=== PATIENT | male | born 1940 | race African-American/Black ===

== ENCOUNTER 2018-11-11 00:12 | Inpatient (IN) | payer MEDICARE, OTHER ==
[~2018-11-11] VITALS: Ht 177.8 cm; Wt 77.6 kg
[~2018-11-11 00:12] MED LIST: ALLO100T MT; AMLO2.5T45 PO; ASPI-518 PO; BACL-141 PO; CALC0.253 PO; CARV25TA47 PO; CELL2 PO; CELL5 PO; CYAN10009 PO; FURO40TA5 PO; HYDR-519 PO; MAGOX4 PO; MULT-1146 PO; OMEP20TA2 PO; PRED5TAB48 PO; PROG1 PO; TACR5CAP13 PO
[2018-11-11 01:11] VITALS: BP 149/71
[2018-11-11] MEDS ORDERED: CLONIDINE 0.1MG TABLET PO PRN (02:30)
[2018-11-11] MEDS ORDERED: ACETAMINOPHEN 325MG TABLET PO PRN (02:30)
[2018-11-11] MEDS ORDERED: CLONIDINE 0.2MG TABLET PO PRN (02:30)
[2018-11-11] MEDS ORDERED: DEXTROSE 50% WATER 50ML SYRINGE IV PRN (02:30)
[2018-11-11] MEDS ORDERED: ONDANSETRON HCL 4MG/2ML INJ IV PRN (02:30)
[2018-11-11] MEDS: BLOOD SUGAR DIAGNOSTIC STRIP TEST SCH ×4 (06:46→21:00)
[2018-11-11] MEDS: INSULIN LISPRO 100 UNITS/ML SUBCUT SCH ×4 (06:47→21:00)
[2018-11-11 08:00] VITALS: BP_SYST 143; BP_SYST 182; BP_DIAS 67; BP_DIAS 93
[2018-11-11] MEDS ORDERED: TACROLIMUS 5MG CAPSULE PO SCH (09:00)
[2018-11-11] MEDS: DOCUSATE SODIUM 100MG CAPSULE PO SCH ×2 (10:06→18:19)
[2018-11-11] MEDS: MYCOPHENOLATE MOFETIL 500MG TABLET PO SCH (10:06)
[2018-11-11] MEDS: ALLOPURINOL 100 MG TABLET PO SCH (10:07)
[2018-11-11] MEDS: PRIMIDONE 50MG TABLET PO SCH ×2 (10:07→20:32)
[2018-11-11] MEDS: MAGNESIUM OXIDE 400MG TABLET PO SCH ×2 (10:07→18:19)
[2018-11-11] MEDS: CARVEDILOL 25MG TABLET PO SCH ×2 (10:07→20:31)
[2018-11-11] MEDS: LIDOCAINE 5% PATCH TOP SCH (10:08)
[2018-11-11 12:00] VITALS: BP 180/88
[2018-11-11] MEDS ORDERED: IRON SUCROSE COMPLEX 100 MG in SODIUM CHLORIDE 0.9% 100 ML IV SCH (12:00)
[2018-11-11] MEDS: TACROLIMUS 1MG CAPSULE PO SCH (18:20)
[2018-11-11 20:00] VITALS: BP 137/71
[2018-11-11] MEDS: MYCOPHENOLATE MOFETIL 250MG CAPSULE PO SCH (20:31)
[2018-11-11] MEDS: IRON SUCROSE COMPLEX 100 MG in SODIUM CHLORIDE 0.9% 100 ML IV SCH (20:39)
[2018-11-12 06:28] LABS: HEMATOCRIT. 28.3 % (42.0-52.0); HEMOGLOBIN. 9.3 g/dL (14.0-18.0); MEAN CORPUSCULAR HEMOGLOBIN 28.1 pg (28.0-32.0); MEAN CORPUSCULAR VOLUME 85.2 fL (80.0-94.0); MEAN PLATELET VOLUME 9.5 fl (7.4-10.4); PLATELET 153 x1000/uL (130-400); RED BLOOD CELL COUNT 3.31 mill/uL (4.7-6.1); RED CELL DISTRIBUTION WIDTH 15.4 % (11.6-14.6)
[2018-11-12] MEDS: BLOOD SUGAR DIAGNOSTIC STRIP TEST SCH ×4 (06:30→21:00)
[2018-11-12 06:40] LABS: CHLORIDE 104 mEq/L (98-107)
[2018-11-12 08:00] VITALS: BP 169/78
[2018-11-12 08:51] LABS: PLATELET ESTIMATE NORMAL
[2018-11-12] MEDS: CARVEDILOL 25MG TABLET PO SCH ×2 (09:00→22:00)
[2018-11-12] MEDS: INSULIN LISPRO 100 UNITS/ML SUBCUT SCH ×4 (09:00→21:00)
[2018-11-12] MEDS: LIDOCAINE 5% PATCH TOP SCH (09:00)
[2018-11-12] MEDS: DOCUSATE SODIUM 100MG CAPSULE PO SCH ×2 (09:13→16:33)
[2018-11-12] MEDS: MYCOPHENOLATE MOFETIL 500MG TABLET PO SCH (09:13)
[2018-11-12] MEDS: PREDNISONE 5MG TABLET PO SCH (09:13)
[2018-11-12] MEDS: MAGNESIUM OXIDE 400MG TABLET PO SCH ×2 (09:14→16:33)
[2018-11-12] MEDS: ALLOPURINOL 100 MG TABLET PO SCH (09:14)
[2018-11-12] MEDS: PRIMIDONE 50MG TABLET PO SCH ×2 (09:15→22:01)
[2018-11-12] MEDS: TACROLIMUS 1MG CAPSULE PO SCH ×2 (09:15→16:34)
[2018-11-12] MEDS: HYDROCODONE/APAP 7.5/325MG 1 TAB TABLET PO PRN ×2 (10:43→17:37)
[2018-11-12] MEDS ORDERED: COLCHICINE 0.6MG TABLET PO NR (12:56)
[2018-11-12] MEDS ORDERED: COLCHICINE 0.6MG TABLET PO ONE (13:00)
[2018-11-12 20:00] VITALS: BP 138/74
[2018-11-12] MEDS ORDERED: COLCHICINE 0.6MG TABLET PO SCH (21:00)
[2018-11-12] MEDS: MYCOPHENOLATE MOFETIL 250MG CAPSULE PO SCH (22:00)
[2018-11-12] MEDS: IRON SUCROSE COMPLEX 100 MG in SODIUM CHLORIDE 0.9% 100 ML IV SCH (22:01)
[2018-11-13] MEDS: INSULIN LISPRO 100 UNITS/ML SUBCUT SCH ×4 (06:31→21:00)
[2018-11-13] MEDS: BLOOD SUGAR DIAGNOSTIC STRIP TEST SCH ×4 (06:31→21:33)
[2018-11-13 06:39] LABS: HEMATOCRIT. 26.3 % (42.0-52.0); HEMOGLOBIN. 8.8 g/dL (14.0-18.0); MEAN CORPUSCULAR HEMOGLOBIN 28.2 pg (28.0-32.0); MEAN CORPUSCULAR VOLUME 84.4 fL (80.0-94.0); MEAN PLATELET VOLUME 9.2 fl (7.4-10.4); PLATELET 162 x1000/uL (130-400); RED BLOOD CELL COUNT 3.11 mill/uL (4.7-6.1); RED CELL DISTRIBUTION WIDTH 15.9 % (11.6-14.6)
[2018-11-13 06:59] LABS: PHOSPHORUS 2.9 mg/dL (2.5-4.9)
[2018-11-13 07:41] LABS: FOLIC ACID (FOLATE) SERUM 10.7 ng/mL (>5.38)
[2018-11-13 08:10] VITALS: BP 132/65
[2018-11-13] MEDS: LIDOCAINE 5% PATCH TOP SCH (09:00)
[2018-11-13] MEDS ORDERED: COLCHICINE 0.6MG TABLET PO NR (09:15)
[2018-11-13] MEDS: DOCUSATE SODIUM 100MG CAPSULE PO SCH ×2 (09:18→16:39)
[2018-11-13] MEDS: TACROLIMUS 1MG CAPSULE PO SCH ×2 (09:18→16:39)
[2018-11-13] MEDS: PRIMIDONE 50MG TABLET PO SCH ×2 (09:18→21:31)
[2018-11-13] MEDS: ALLOPURINOL 100 MG TABLET PO SCH (09:19)
[2018-11-13] MEDS: MYCOPHENOLATE MOFETIL 500MG TABLET PO SCH (09:19)
[2018-11-13] MEDS: CARVEDILOL 25MG TABLET PO SCH ×2 (09:19→21:29)
[2018-11-13] MEDS: MAGNESIUM OXIDE 400MG TABLET PO SCH ×2 (09:19→16:39)
[2018-11-13 13:05] LABS: NUCLEATED RED BLOOD CELLS 1 /100 WBC; PLATELET ESTIMATE NORMAL
[2018-11-13 20:00] VITALS: BP 138/70
[2018-11-13] MEDS: MYCOPHENOLATE MOFETIL 250MG CAPSULE PO SCH (21:29)
[2018-11-14] MEDS: BLOOD SUGAR DIAGNOSTIC STRIP TEST SCH ×4 (06:48→21:16)
[2018-11-14] MEDS: TACROLIMUS 1MG CAPSULE PO SCH ×2 (08:14→17:01)
[2018-11-14] MEDS: PRIMIDONE 50MG TABLET PO SCH ×2 (08:15→21:14)
[2018-11-14] MEDS: CARVEDILOL 25MG TABLET PO SCH ×2 (08:15→21:13)
[2018-11-14] MEDS: DOCUSATE SODIUM 100MG CAPSULE PO SCH ×2 (08:15→17:02)
[2018-11-14] MEDS: ALLOPURINOL 100 MG TABLET PO SCH (08:15)
[2018-11-14] MEDS: MYCOPHENOLATE MOFETIL 500MG TABLET PO SCH (08:15)
[2018-11-14] MEDS: MAGNESIUM OXIDE 400MG TABLET PO SCH ×2 (08:16→17:01)
[2018-11-14] MEDS: INSULIN LISPRO 100 UNITS/ML SUBCUT SCH ×4 (08:16→21:00)
[2018-11-14] MEDS: LIDOCAINE 5% PATCH TOP SCH (08:19)
[2018-11-14 08:33] VITALS: BP 154/77
[2018-11-14 20:00] VITALS: BP 134/66
[2018-11-14] MEDS: MYCOPHENOLATE MOFETIL 250MG CAPSULE PO SCH (21:13)
[2018-11-15 05:50] LABS: HEMATOCRIT. 27.5 % (42.0-52.0); MEAN CORPUSCULAR HEMOGLOBIN 27.9 pg (28.0-32.0); MEAN CORPUSCULAR VOLUME 85.6 fL (80.0-94.0); MEAN PLATELET VOLUME 8.6 fl (7.4-10.4); PLATELET 171 x1000/uL (130-400); RED BLOOD CELL COUNT 3.21 mill/uL (4.7-6.1); RED CELL DISTRIBUTION WIDTH 15.6 % (11.6-14.6)
[2018-11-15 07:00] LABS: PHOSPHORUS 3.5 mg/dL (2.5-4.9)
[2018-11-15] MEDS: BLOOD SUGAR DIAGNOSTIC STRIP TEST SCH ×4 (07:22→21:00)
[2018-11-15 08:00] VITALS: BP 127/50
[2018-11-15] MEDS: MYCOPHENOLATE MOFETIL 500MG TABLET PO SCH (08:41)
[2018-11-15] MEDS: TACROLIMUS 1MG CAPSULE PO SCH ×2 (08:42→17:54)
[2018-11-15] MEDS: MAGNESIUM OXIDE 400MG TABLET PO SCH (08:42)
[2018-11-15] MEDS: DOCUSATE SODIUM 100MG CAPSULE PO SCH ×2 (08:42→17:54)
[2018-11-15] MEDS: PREDNISONE 5MG TABLET PO SCH (08:42)
[2018-11-15] MEDS: LIDOCAINE 5% PATCH TOP SCH (08:43)
[2018-11-15] MEDS: ALLOPURINOL 100 MG TABLET PO SCH (08:43)
[2018-11-15] MEDS: PRIMIDONE 50MG TABLET PO SCH ×2 (08:43→22:10)
[2018-11-15] MEDS: INSULIN LISPRO 100 UNITS/ML SUBCUT SCH ×4 (08:43→21:00)
[2018-11-15] MEDS: CARVEDILOL 25MG TABLET PO SCH ×2 (08:45→22:13)
[2018-11-15 12:28] LABS: PLATELET ESTIMATE NORMAL
[2018-11-15 20:00] VITALS: BP 137/77
[2018-11-15] MEDS: MYCOPHENOLATE MOFETIL 250MG CAPSULE PO SCH (22:09)
[2018-11-15] MEDS: EPOETIN ALFA 10000UNITS/ML VIAL SUBCUT SCH (22:13)
[2018-11-16] MEDS: BLOOD SUGAR DIAGNOSTIC STRIP TEST SCH ×4 (05:46→21:12)
[2018-11-16] MEDS: INSULIN LISPRO 100 UNITS/ML SUBCUT SCH ×4 (06:59→21:00)
[2018-11-16 08:00] VITALS: BP 112/56
[2018-11-16] MEDS: PRIMIDONE 50MG TABLET PO SCH ×2 (08:07→21:11)
[2018-11-16] MEDS: TACROLIMUS 1MG CAPSULE PO SCH ×2 (08:08→17:25)
[2018-11-16] MEDS: DOCUSATE SODIUM 100MG CAPSULE PO SCH ×2 (08:08→17:25)
[2018-11-16] MEDS: MYCOPHENOLATE MOFETIL 500MG TABLET PO SCH (08:08)
[2018-11-16] MEDS: CARVEDILOL 25MG TABLET PO SCH ×2 (08:08→21:06)
[2018-11-16] MEDS: ALLOPURINOL 100 MG TABLET PO SCH (08:08)
[2018-11-16] MEDS: LIDOCAINE 5% PATCH TOP SCH (08:48)
[2018-11-16] MEDS: HYDROCODONE/APAP 7.5/325MG 1 TAB TABLET PO PRN (12:07)
[2018-11-16 20:00] VITALS: BP 120/64
[2018-11-16] MEDS: MYCOPHENOLATE MOFETIL 250MG CAPSULE PO SCH (21:06)
[2018-11-17] MEDS: BLOOD SUGAR DIAGNOSTIC STRIP TEST SCH ×4 (05:44→21:00)
[2018-11-17] MEDS: INSULIN LISPRO 100 UNITS/ML SUBCUT SCH ×4 (05:45→21:00)
[2018-11-17 06:36] LABS: BASOPHILS % 0.7 % (0.0-2.0); EOSINOPHILS % 3.6 % (0.0-5.0); HEMATOCRIT. 27.8 % (42.0-52.0); MEAN CORPUSCULAR VOLUME 85.9 fL (80.0-94.0); MEAN PLATELET VOLUME 8.6 fl (7.4-10.4); MONOCYTES % 14.6 % (2.0-8.0); NEUTROPHILS % 54.1 % (40.0-76.0); PLATELET 177 x1000/uL (130-400); RED BLOOD CELL COUNT 3.24 mill/uL (4.7-6.1); RED CELL DISTRIBUTION WIDTH 16.3 % (11.6-14.6)
[2018-11-17 06:52] LABS: CHLORIDE 104 mEq/L (98-107)
[2018-11-17 06:59] LABS: PHOSPHORUS 4.1 mg/dL (2.5-4.9)
[2018-11-17] MEDS: MYCOPHENOLATE MOFETIL 500MG TABLET PO SCH (08:41)
[2018-11-17] MEDS: ALLOPURINOL 100 MG TABLET PO SCH (08:41)
[2018-11-17] MEDS: DOCUSATE SODIUM 100MG CAPSULE PO SCH ×2 (08:41→16:39)
[2018-11-17] MEDS: PRIMIDONE 50MG TABLET PO SCH ×2 (08:41→23:31)
[2018-11-17] MEDS: PREDNISONE 5MG TABLET PO SCH (08:41)
[2018-11-17] MEDS: CARVEDILOL 25MG TABLET PO SCH ×2 (08:42→23:30)
[2018-11-17] MEDS: TACROLIMUS 1MG CAPSULE PO SCH ×2 (08:42→16:39)
[2018-11-17 18:02] LABS: HEPATITIS B SURFACE AB 511.5 mIU/mL
[2018-11-17 20:00] VITALS: BP 126/66
[2018-11-17] MEDS: MYCOPHENOLATE MOFETIL 250MG CAPSULE PO SCH (23:30)
[2018-11-17] MEDS: EPOETIN ALFA 10000UNITS/ML VIAL SUBCUT SCH (23:32)
[2018-11-18] MEDS: INSULIN LISPRO 100 UNITS/ML SUBCUT SCH ×4 (06:44→20:44)
[2018-11-18] MEDS: BLOOD SUGAR DIAGNOSTIC STRIP TEST SCH ×4 (06:44→20:43)
[2018-11-18 08:00] VITALS: BP 128/72
[2018-11-18] MEDS: CARVEDILOL 25MG TABLET PO SCH ×2 (09:09→20:43)
[2018-11-18] MEDS: DOCUSATE SODIUM 100MG CAPSULE PO SCH ×2 (09:09→17:00)
[2018-11-18] MEDS: ALLOPURINOL 100 MG TABLET PO SCH (09:09)
[2018-11-18] MEDS: PRIMIDONE 50MG TABLET PO SCH ×2 (09:14→20:43)
[2018-11-18] MEDS: TACROLIMUS 1MG CAPSULE PO SCH ×2 (09:15→17:56)
[2018-11-18] MEDS: MYCOPHENOLATE MOFETIL 500MG TABLET PO SCH (09:19)
[2018-11-18 17:11] LABS: 25-HYDROXY VITAMIN D3 9.3 ng/mL (.)
[2018-11-18 20:00] VITALS: BP 118/65
[2018-11-18] MEDS: MYCOPHENOLATE MOFETIL 250MG CAPSULE PO SCH (20:42)
[2018-11-19 08:00] VITALS: BP 143/72
[2018-11-19] MEDS: INSULIN LISPRO 100 UNITS/ML SUBCUT SCH ×4 (09:00→21:00)
[2018-11-19] MEDS: DOCUSATE SODIUM 100MG CAPSULE PO SCH ×2 (09:00→17:49)
[2018-11-19] MEDS: PREDNISONE 5MG TABLET PO SCH (10:19)
[2018-11-19] MEDS: MYCOPHENOLATE MOFETIL 250MG CAPSULE PO SCH (10:19)
[2018-11-19] MEDS: MYCOPHENOLATE MOFETIL 500MG TABLET PO SCH (10:19)
[2018-11-19] MEDS: PRIMIDONE 50MG TABLET PO SCH ×2 (10:20→23:57)
[2018-11-19] MEDS: CARVEDILOL 25MG TABLET PO SCH (10:20)
[2018-11-19] MEDS: ALLOPURINOL 100 MG TABLET PO SCH (10:20)
[2018-11-19] MEDS: TACROLIMUS 1MG CAPSULE PO SCH ×2 (10:21→17:49)
[2018-11-19] MEDS: BLOOD SUGAR DIAGNOSTIC STRIP TEST SCH ×3 (11:15→21:00)
[2018-11-19] MEDS: HYDROCODONE/APAP 7.5/325MG 1 TAB TABLET PO PRN (11:43)
[2018-11-19] MEDS ORDERED: ERGOCALCIFEROL 50000UNITS CAPSULE PO SCH (16:00)
[2018-11-19 20:00] VITALS: BP 133/71
[2018-11-19] MEDS: EPOETIN ALFA 10000UNITS/ML VIAL SUBCUT SCH (23:57)
[2018-11-20] MEDS: CARVEDILOL 25MG TABLET PO SCH ×2 (00:04→09:56)
[2018-11-20] MEDS: BLOOD SUGAR DIAGNOSTIC STRIP TEST SCH ×2 (06:30→11:15)
[2018-11-20] MEDS: INSULIN LISPRO 100 UNITS/ML SUBCUT SCH ×2 (07:43→13:00)
[2018-11-20 08:00] VITALS: BP 133/62
[2018-11-20] MEDS: MYCOPHENOLATE MOFETIL 500MG TABLET PO SCH (09:55)
[2018-11-20] MEDS: ALLOPURINOL 100 MG TABLET PO SCH (09:55)
[2018-11-20] MEDS: DOCUSATE SODIUM 100MG CAPSULE PO SCH (09:55)
[2018-11-20] MEDS: PRIMIDONE 50MG TABLET PO SCH (09:55)
[2018-11-20] MEDS: TACROLIMUS 1MG CAPSULE PO SCH (09:56)
[2018-11-20 10:36] VITALS: BP 133/62
== END 2018-11-20 15:22 | disposition home health service (06) | DRG 683 ==
PROVIDERS: ADMIT Physical Medicine & Rehabilitation Spinal Cord Injury Medicine; ATTEND Internal Medicine Nephrology
PROC: 5A1D70Z Performance of Urinary Filtration, Intermittent, Less than 6 Hours Per Day (ICD-10-PCS; principal; 2018-11-12)
PROC: 5A1D70Z Performance of Urinary Filtration, Intermittent, Less than 6 Hours Per Day (ICD-10-PCS; 2018-11-15)
PROC: 5A1D70Z Performance of Urinary Filtration, Intermittent, Less than 6 Hours Per Day (ICD-10-PCS; 2018-11-17)
PROC: 5A1D70Z Performance of Urinary Filtration, Intermittent, Less than 6 Hours Per Day (ICD-10-PCS; 2018-11-19)
DX: N17.9 Acute kidney failure, unspecified (principal); I13.2 Hypertensive heart and chronic kidney disease with heart failure and with stage 5 chronic kidney disease, or end stage renal disease; M62.82 Rhabdomyolysis; I42.9 Cardiomyopathy, unspecified; I25.811 Atherosclerosis of native coronary artery of transplanted heart without angina pectoris; R53.81 Other malaise; N18.6 End stage renal disease; D50.9 Iron deficiency anemia, unspecified; D63.8 Anemia in other chronic diseases classified elsewhere; D69.6 Thrombocytopenia, unspecified; E11.22 Type 2 diabetes mellitus with diabetic chronic kidney disease; E11.42 Type 2 diabetes mellitus with diabetic polyneuropathy; I50.9 Heart failure, unspecified; J44.9 Chronic obstructive pulmonary disease, unspecified; M10.9 Gout, unspecified; E55.9 Vitamin D deficiency, unspecified; F06.31 Mood disorder due to known physiological condition with depressive features; R26.9 Unspecified abnormalities of gait and mobility; R74.8 Abnormal levels of other serum enzymes; Z99.2 Dependence on renal dialysis; Z79.4 Long term (current) use of insulin; Z92.3 Personal history of irradiation; Z85.46 Personal history of malignant neoplasm of prostate; Z86.73 Personal history of transient ischemic attack (TIA), and cerebral infarction without residual deficits
CPT/HCPCS: 36415; 80048; 82306; 82607; 82728; 82746; 82962; 83540; 83550; 83735; 84100; 84134; 84443; 84550; 86705; 86706; 93970; 97110; 97112; 97116; 97150; 97162; 97166; 97530; 97535; J0885; J7050; J7507; J7512; J7517

== ENCOUNTER 2019-02-08 18:28 | Inpatient (IN) | payer MEDICARE, MEDICAID, OTHER ==
[~2019-02-08] VITALS: Ht 177.8 cm; Wt 76.7 kg
[2019-02-08 21:22] LABS: HEMATOCRIT. 35.6 % (42.0-52.0); HEMOGLOBIN. 11.3 g/dL (14.0-18.0); MEAN CORPUSCULAR HEMOGLOBIN 29.3 pg (28.0-32.0); MEAN CORPUSCULAR VOLUME 92.1 fL (80.0-94.0); PLATELET 135 x1000/uL (130-400); RED BLOOD CELL COUNT 3.87 mill/uL (4.7-6.1); RED CELL DISTRIBUTION WIDTH 17.4 % (11.6-14.6)
[2019-02-08 21:28] LABS: CHLORIDE 103 mEq/L (98-107)
[2019-02-08 21:33] LABS: PHOSPHORUS 3.7 mg/dL (2.5-4.9)
[2019-02-08] MEDS ORDERED: HEPARIN 5000 UNITS/ML VIAL IV NR (21:45)
[2019-02-08 21:49] LABS: PLATELET ESTIMATE NORMAL
[2019-02-08] MEDS ORDERED: ASPIRIN 325MG EC TABLET PO NR (22:00)
[2019-02-08 22:02] LABS: PARTIAL THROMBOPLASTIN TIME 27.1 sec (23.4-31.0)
[2019-02-08] MEDS ORDERED: HEPARIN 25,000 UNITS PREMIX 500 ML IV NR (23:00)
[2019-02-08] MEDS ORDERED: ACETAMINOPHEN 325MG TABLET PO PRN (23:15)
[2019-02-08] MEDS ORDERED: GUAIFENESIN 200MG/10ML SUGAR FREE UDC PO PRN (23:15)
[2019-02-08] MEDS ORDERED: ONDANSETRON HCL 4MG/2ML INJ IV PRN (23:15)
[2019-02-08] MEDS ORDERED: DIPHENHYDRAMINE 50MG/ML VIAL IV PRN (23:15)
[2019-02-08] MEDS ORDERED: CLONIDINE 0.1MG TABLET PO PRN (23:15)
[2019-02-08] MEDS ORDERED: MAGNESIUM/ALUMINUM HYDROXIDE/SIMETHICONE 30ML UDC PO PRN (23:15)
[2019-02-09] VITALS (7 sets, daily range): BP systolic 110–129; BP diastolic 55–75
[2019-02-09] MEDS: OMEPRAZOLE 20MG CAPSULE EXTENDED RELEASE PO SCH (07:50)
[2019-02-09] MEDS ORDERED: PRIMIDONE 50MG TABLET PO SCH (09:00)
[2019-02-09] MEDS ORDERED: ENOXAPARIN 40MG/0.4ML SYR SUBCUT SCH (09:00)
[2019-02-09] MEDS ORDERED: MYCOPHENOLATE MOFETIL 250MG CAPSULE PO SCH (09:00)
[2019-02-09] MEDS: CARVEDILOL 12.5MG TABLET PO SCH (09:20)
[2019-02-09] MEDS: ALLOPURINOL 100 MG TABLET PO SCH (09:20)
[2019-02-09] MEDS: ASPIRIN 81MG EC TABLET PO SCH (09:20)
[2019-02-09] MEDS: PREDNISONE 5MG TABLET PO SCH (09:20)
[2019-02-09] MEDS: TACROLIMUS 5MG CAPSULE PO SCH ×2 (12:08→18:22)
[2019-02-09] MEDS ORDERED: DEXTROSE 50% WATER 50ML SYRINGE IV PRN (17:00)
[2019-02-09] MEDS: INSULIN LISPRO 100 UNITS/ML SUBCUT SCH ×2 (17:20→21:00)
[2019-02-09] MEDS: ENOXAPARIN 30MG/0.3ML SYR SUBCUT SCH (18:22)
[2019-02-09] MEDS: BLOOD SUGAR DIAGNOSTIC STRIP TEST SCH (21:00)
[2019-02-09] MEDS: SODIUM CHLORIDE 0.9% INJ 3ML FLUSH IVF SCH ×2 (21:54→21:55)
[2019-02-10] VITALS (14 sets, daily range): BP systolic 102–149; BP diastolic 59–85
[2019-02-10] MEDS: PRIMIDONE 50MG TABLET PO SCH ×3 (01:09→20:38)
[2019-02-10] MEDS: OMEPRAZOLE 20MG CAPSULE EXTENDED RELEASE PO SCH ×2 (01:09→06:02)
[2019-02-10] MEDS: CARVEDILOL 12.5MG TABLET PO SCH ×3 (01:10→20:38)
[2019-02-10] MEDS: MYCOPHENOLATE MOFETIL 250MG CAPSULE PO SCH ×2 (01:15→20:38)
[2019-02-10] MEDS: SODIUM CHLORIDE 0.9% INJ 3ML FLUSH IVF SCH ×3 (06:02→20:39)
[2019-02-10] MEDS: BLOOD SUGAR DIAGNOSTIC STRIP TEST SCH ×5 (06:02→20:38)
[2019-02-10] MEDS: INSULIN LISPRO 100 UNITS/ML SUBCUT SCH ×4 (06:23→20:43)
[2019-02-10 06:30] LABS: BASOPHILS % 0.4 % (0.0-2.0); EOSINOPHILS % 2.5 % (0.0-5.0); HEMATOCRIT. 32.9 % (42.0-52.0); HEMOGLOBIN. 10.8 g/dL (14.0-18.0); MEAN CORPUSCULAR HEMOGLOBIN 29.5 pg (28.0-32.0); MEAN CORPUSCULAR VOLUME 90.2 fL (80.0-94.0); MEAN PLATELET VOLUME 9.1 fl (7.4-10.4); MONOCYTES % 13.9 % (2.0-8.0); NEUTROPHILS % 52.2 % (40.0-76.0); PLATELET 124 x1000/uL (130-400); RED BLOOD CELL COUNT 3.65 mill/uL (4.7-6.1); RED CELL DISTRIBUTION WIDTH 17.3 % (11.6-14.6)
[2019-02-10] MEDS: TACROLIMUS 5MG CAPSULE PO SCH ×2 (08:42→17:07)
[2019-02-10] MEDS: ASPIRIN 81MG EC TABLET PO SCH (08:42)
[2019-02-10] MEDS: ALLOPURINOL 100 MG TABLET PO SCH (08:42)
[2019-02-10] MEDS: ENOXAPARIN 30MG/0.3ML SYR SUBCUT SCH (08:43)
[2019-02-10] MEDS: MYCOPHENOLATE MOFETIL 500MG TABLET PO SCH (08:45)
[2019-02-10] MEDS ORDERED: REGADENOSON 0.4 MG/5 ML IV ONE (09:30)
[2019-02-11] VITALS (16 sets, daily range): BP systolic 109–155; BP diastolic 65–88
[2019-02-11] MEDS: SODIUM CHLORIDE 0.9% INJ 3ML FLUSH IVF SCH ×2 (05:37→14:24)
[2019-02-11] MEDS: INSULIN LISPRO 100 UNITS/ML SUBCUT SCH ×2 (05:38→12:08)
[2019-02-11] MEDS ORDERED: FAMOTIDINE 20MG TABLET PO SCH (09:00)
[2019-02-11] MEDS: CARVEDILOL 12.5MG TABLET PO SCH (09:00)
[2019-02-11] MEDS: ENOXAPARIN 30MG/0.3ML SYR SUBCUT SCH (09:09)
[2019-02-11] MEDS: PREDNISONE 5MG TABLET PO SCH (09:10)
[2019-02-11] MEDS: MYCOPHENOLATE MOFETIL 500MG TABLET PO SCH (09:10)
[2019-02-11] MEDS: ASPIRIN 81MG EC TABLET PO SCH (09:10)
[2019-02-11] MEDS: TACROLIMUS 5MG CAPSULE PO SCH (09:10)
[2019-02-11] MEDS: PRIMIDONE 50MG TABLET PO SCH (09:10)
[2019-02-11] MEDS: ALLOPURINOL 100 MG TABLET PO SCH (09:10)
[2019-02-11] MEDS ORDERED: REGADENOSON 0.4 MG/5 ML IV ONE (11:46)
[2019-02-11] MEDS: BLOOD SUGAR DIAGNOSTIC STRIP TEST SCH (11:50)
[2019-02-11 14:24] LABS: BASOPHILS % 1.4 % (0.0-2.0); EOSINOPHILS % 0.9 % (0.0-5.0); HEMATOCRIT. 38.6 % (42.0-52.0); HEMOGLOBIN. 12.5 g/dL (14.0-18.0); LYMPHOCYTES % 20.3 % (20.0-50.0); MEAN CORPUSCULAR HEMOGLOBIN 29.4 pg (28.0-32.0); MEAN CORPUSCULAR VOLUME 90.6 fL (80.0-94.0); MEAN PLATELET VOLUME 9.6 fl (7.4-10.4); MONOCYTES % 8.3 % (2.0-8.0); NEUTROPHILS % 69.1 % (40.0-76.0); PLATELET 134 x1000/uL (130-400); RED BLOOD CELL COUNT 4.26 mill/uL (4.7-6.1)
== END 2019-02-11 16:38 | disposition home or self-care (01) | DRG 280 ==
LOC: ER 18:28 → 3WST 22:24 → EDBEDREQ 22:25 → EDBEDREQTM 22:25 → EDBEDREQSVC 22:25 → EDBEDREQTM 22:26 → ENRESERV 02-09 07:00
PROVIDERS: ADMIT Internal Medicine; ATTEND Internal Medicine
PROC: 5A1D70Z Performance of Urinary Filtration, Intermittent, Less than 6 Hours Per Day (ICD-10-PCS; principal; 2019-02-09)
PROC: 5A1D70Z Performance of Urinary Filtration, Intermittent, Less than 6 Hours Per Day (ICD-10-PCS; 2019-02-10)
DX: I21.4 Non-ST elevation (NSTEMI) myocardial infarction (principal); N18.6 End stage renal disease; I25.811 Atherosclerosis of native coronary artery of transplanted heart without angina pectoris; Z94.1 Heart transplant status; I13.11 Hypertensive heart and chronic kidney disease without heart failure, with stage 5 chronic kidney disease, or end stage renal disease; E11.22 Type 2 diabetes mellitus with diabetic chronic kidney disease; E78.00 Pure hypercholesterolemia, unspecified; G25.3 Myoclonus; J44.9 Chronic obstructive pulmonary disease, unspecified; K73.2 Chronic active hepatitis, not elsewhere classified; M10.9 Gout, unspecified; Z85.46 Personal history of malignant neoplasm of prostate; Z86.73 Personal history of transient ischemic attack (TIA), and cerebral infarction without residual deficits; Z95.1 Presence of aortocoronary bypass graft; Z92.3 Personal history of irradiation; Z99.2 Dependence on renal dialysis; Z93.6 Other artificial openings of urinary tract status; Z88.0 Allergy status to penicillin; Z79.899 Other long term (current) drug therapy
CPT/HCPCS: 36415; 71045; 78452; 80048; 82962; 83735; 83880; 84100; 84443; 84484; 93005; 93017; 93306; 96365; 96375; 99285; A9500; J1644; J1650; J2785; J7507; J7512; J7517

== ENCOUNTER 2019-02-21 15:45 | Inpatient (IN) | payer MEDICARE, OTHER ==
[~2019-02-21] VITALS: Ht 177.8 cm; Wt 83.0 kg
[2019-02-21] MEDS ORDERED: KETOROLAC 30MG/ML VIAL IV ONE (17:00)
[2019-02-21 17:11] LABS: BASOPHILS % 0.4 % (0.0-2.0); EOSINOPHILS % 1.5 % (0.0-5.0); HEMOGLOBIN. 12.7 g/dL (14.0-18.0); MEAN CORPUSCULAR HEMOGLOBIN 29.9 pg (28.0-32.0); MEAN CORPUSCULAR VOLUME 91.8 fL (80.0-94.0); MEAN PLATELET VOLUME 8.5 fl (7.4-10.4); NEUTROPHILS % 74.1 % (40.0-76.0); PLATELET 189 x1000/uL (130-400); RED BLOOD CELL COUNT 4.25 mill/uL (4.7-6.1); RED CELL DISTRIBUTION WIDTH 17.1 % (11.6-14.6)
[2019-02-21 17:17] LABS: CHLORIDE 97 mEq/L (98-107)
[2019-02-21 17:19] LABS: PARTIAL THROMBOPLASTIN TIME 25.6 sec (23.4-31.0); PROTHROMBIN TIME 10.4 sec (9.6-11.0)
[2019-02-21] MEDS ORDERED: ASPIRIN 325MG TABLET PO ONE (18:30)
[2019-02-21 20:25] VITALS: BP 123/67
[2019-02-21] MEDS ORDERED: TEMAZEPAM 15MG CAPSULE PO PRN (20:45)
[2019-02-21] MEDS ORDERED: MAGNESIUM HYDROXIDE 400MG/5ML 30ML UDC PO PRN (20:45)
[2019-02-21] MEDS ORDERED: ACETAMINOPHEN 325MG TABLET PO PRN (21:00)
[2019-02-21] MEDS ORDERED: DIPHENHYDRAMINE 50MG/ML VIAL IV PRN (21:00)
[2019-02-21] MEDS ORDERED: ONDANSETRON HCL 4MG/2ML INJ IV PRN (21:00)
[2019-02-21] MEDS ORDERED: CLONIDINE 0.1MG TABLET PO PRN (21:00)
[2019-02-21] MEDS ORDERED: GUAIFENESIN 200MG/10ML SUGAR FREE UDC PO PRN (21:00)
[2019-02-21] MEDS: OMEPRAZOLE 20MG CAPSULE EXTENDED RELEASE PO SCH (23:22)
[2019-02-21] MEDS: PRIMIDONE 50MG TABLET PO SCH (23:23)
[2019-02-21 23:28] VITALS: BP 123/67
[2019-02-22] VITALS: BP 132/76
[2019-02-22] MEDS ORDERED: PRED5TAB PO (00:48)
[2019-02-22] MEDS ORDERED: MULT-1234 PO (00:48)
[2019-02-22] MEDS ORDERED: CALC0.253 PO (00:48)
[2019-02-22] MEDS ORDERED: ASCO125T PO (00:48)
[2019-02-22] MEDS ORDERED: CELL5 PO (00:48)
[2019-02-22] MEDS ORDERED: MAGN400C PO (00:48)
[2019-02-22] MEDS ORDERED: AMLO10TA4 PO (00:48)
[2019-02-22] MEDS ORDERED: HYDR-4009 PO (00:48)
[2019-02-22] MEDS ORDERED: CHOL400C8 PO (00:48)
[2019-02-22] MEDS ORDERED: ASPI-986 PO (00:48)
[2019-02-22] MEDS ORDERED: CALC-1042 PO (00:48)
[2019-02-22] MEDS ORDERED: PRIM50TA31 PO (00:48)
[2019-02-22] MEDS ORDERED: CELL2 PO (00:48)
[2019-02-22] MEDS ORDERED: VITA400C19 PO (00:48)
[2019-02-22] MEDS ORDERED: FURO40TA5 PO (00:48)
[2019-02-22] MEDS ORDERED: TAMS-11 PO (00:48)
[2019-02-22] MEDS ORDERED: PROG1 PO (00:48)
[2019-02-22] MEDS ORDERED: OMEP10CA5 PO (00:48)
[2019-02-22] MEDS ORDERED: CARV25TA47 PO (00:48)
[2019-02-22] MEDS ORDERED: BACL20TA PO (00:48)
[2019-02-22] MEDS ORDERED: PRAV40TA58 PO (00:48)
[2019-02-22 04:00] VITALS: BP 108/66
[2019-02-22] MEDS: SODIUM CHLORIDE 0.9% INJ 3ML FLUSH IVF SCH ×3 (05:48→21:17)
[2019-02-22 07:36] LABS: BASOPHILS % 0.9 % (0.0-2.0); EOSINOPHILS % 3.9 % (0.0-5.0); HEMATOCRIT. 35.2 % (42.0-52.0); HEMOGLOBIN. 11.6 g/dL (14.0-18.0); LYMPHOCYTES % 28.1 % (20.0-50.0); MEAN CORPUSCULAR HEMOGLOBIN 29.8 pg (28.0-32.0); MEAN CORPUSCULAR VOLUME 90.6 fL (80.0-94.0); MEAN PLATELET VOLUME 9.2 fl (7.4-10.4); MONOCYTES % 14.8 % (2.0-8.0); NEUTROPHILS % 52.3 % (40.0-76.0); PLATELET 163 x1000/uL (130-400); RED BLOOD CELL COUNT 3.88 mill/uL (4.7-6.1)
[2019-02-22 07:52] VITALS: BP 121/73
[2019-02-22] MEDS ORDERED: ASPIRIN 81MG EC TABLET PO SCH (09:00)
[2019-02-22] MEDS: ALLOPURINOL 100 MG TABLET PO SCH (09:07)
[2019-02-22] MEDS: MIDODRINE HCL 5MG TABLET PO SCH ×3 (09:07→16:56)
[2019-02-22] MEDS: TACROLIMUS 5MG CAPSULE PO SCH ×2 (09:08→21:16)
[2019-02-22] MEDS: MYCOPHENOLATE MOFETIL 250MG CAPSULE PO SCH ×2 (09:08→16:56)
[2019-02-22] MEDS: OMEPRAZOLE 20MG CAPSULE EXTENDED RELEASE PO SCH ×2 (09:08→16:56)
[2019-02-22] MEDS: PRIMIDONE 50MG TABLET PO SCH ×2 (09:08→21:16)
[2019-02-22 11:54] VITALS: BP 122/71
[2019-02-22 15:21] VITALS: BP 110/61
[2019-02-22 20:00] VITALS: BP 107/64
[2019-02-22] MEDS: HYDROCODONE/ACETAMINOPHEN 5/325MG TABLET PO PRN (21:25)
[2019-02-23] VITALS (37 sets, daily range): BP systolic 116–146; BP diastolic 56–93
[2019-02-23] MEDS: SODIUM CHLORIDE 0.9% INJ 3ML FLUSH IVF SCH ×3 (05:15→22:00)
[2019-02-23 06:17] LABS: HEMATOCRIT. 35.9 % (42.0-52.0); HEMOGLOBIN. 11.7 g/dL (14.0-18.0); MEAN CORPUSCULAR HEMOGLOBIN 29.6 pg (28.0-32.0); MEAN CORPUSCULAR VOLUME 90.8 fL (80.0-94.0); MEAN PLATELET VOLUME 9.3 fl (7.4-10.4); PLATELET 166 x1000/uL (130-400); RED BLOOD CELL COUNT 3.96 mill/uL (4.7-6.1); RED CELL DISTRIBUTION WIDTH 16.8 % (11.6-14.6)
[2019-02-23] MEDS ORDERED: LIDOCAINE HCL 1% 20ML VIAL (Pyxis) INJ ONE (07:53)
[2019-02-23] MEDS ORDERED: IODIXANOL 320MG/ML 100 ML BOTTLE IV ONE ×2 (07:53→09:23)
[2019-02-23] MEDS ORDERED: HEPARIN SODIUM 1,000 UNIT/1ML VIAL IV ONE (08:02)
[2019-02-23] MEDS ORDERED: NITROGLYCERIN 50MCG/ML 10ML VIAL (CATH LAB) IV ONE (08:02)
[2019-02-23] MEDS ORDERED: NICARDIPINE 100MCG/ML 10ML VIAL (CATH LAB) IV ONE (08:02)
[2019-02-23] MEDS ORDERED: MIDAZOLAM HCL 2 MG/2 ML VIAL ONE (08:19)
[2019-02-23] MEDS ORDERED: FENTANYL CITRATE/PF 50MCG/ML 2ML VIAL ONE (08:19)
[2019-02-23] MEDS: MIDODRINE HCL 5MG TABLET PO SCH ×2 (09:00→12:35)
[2019-02-23] MEDS ORDERED: IOHEXOL-300 100 ML BOTTLE ONE (09:01)
[2019-02-23] MEDS ORDERED: TICAGRELOR 90 MG TABLET PO ONE (09:45)
[2019-02-23] MEDS ORDERED: ASPIRIN 325MG EC TABLET PO ONE (09:45)
[2019-02-23] MEDS ORDERED: ONDANSETRON HCL 4MG/2ML INJ IV PRN (10:00)
[2019-02-23] MEDS ORDERED: ACETAMINOPHEN 325MG TABLET PO PRN (10:00)
[2019-02-23] MEDS ORDERED: ATROPINE SULFATE 1MG/10ML SYR IV PRN (10:00)
[2019-02-23] MEDS ORDERED: MORPHINE SULFATE 2 MG/ML CPJ (NOT FOR IM USE) IV ONE ×2 (10:45→11:00)
[2019-02-23] MEDS ORDERED: MAGNESIUM/ALUMINUM HYDROXIDE/SIMETHICONE 30ML UDC ONE (10:54)
[2019-02-23] MEDS ORDERED: MAGNESIUM/ALUMINUM HYDROXIDE/SIMETHICONE 30ML UDC PO ONE (11:00)
[2019-02-23] MEDS: MYCOPHENOLATE MOFETIL 250MG CAPSULE PO SCH ×2 (11:39→17:37)
[2019-02-23] MEDS: PRIMIDONE 50MG TABLET PO SCH ×2 (11:39→23:13)
[2019-02-23] MEDS: ALLOPURINOL 100 MG TABLET PO SCH (11:39)
[2019-02-23] MEDS: PREDNISONE 5MG TABLET PO SCH (11:39)
[2019-02-23] MEDS: FAMOTIDINE 20MG TABLET PO SCH (11:40)
[2019-02-23] MEDS: TACROLIMUS 5MG CAPSULE PO SCH ×2 (11:40→23:12)
[2019-02-23 12:22] LABS: PLATELET ESTIMATE NORMAL
[2019-02-23] MEDS: TICAGRELOR 90 MG TABLET PO SCH (17:37)
[2019-02-23] MEDS: CARVEDILOL 6.25 MG TABLET PO SCH (20:48)
[2019-02-23] MEDS: HYDROCODONE/ACETAMINOPHEN 5/325MG TABLET PO PRN (20:49)
[2019-02-24] VITALS (14 sets, daily range): BP systolic 103–133; BP diastolic 57–92
[2019-02-24] MEDS: SODIUM CHLORIDE 0.9% INJ 3ML FLUSH IVF SCH ×3 (06:33→21:00)
[2019-02-24 06:59] LABS: HEMOGLOBIN. 11.2 g/dL (14.0-18.0); MEAN CORPUSCULAR HEMOGLOBIN 29.4 pg (28.0-32.0); MEAN CORPUSCULAR VOLUME 91.6 fL (80.0-94.0); MEAN PLATELET VOLUME 9.4 fl (7.4-10.4); PLATELET 153 x1000/uL (130-400); RED BLOOD CELL COUNT 3.82 mill/uL (4.7-6.1); RED CELL DISTRIBUTION WIDTH 16.7 % (11.6-14.6)
[2019-02-24] MEDS: ALLOPURINOL 100 MG TABLET PO SCH (08:57)
[2019-02-24] MEDS: CARVEDILOL 6.25 MG TABLET PO SCH ×2 (08:57→21:00)
[2019-02-24] MEDS: TACROLIMUS 5MG CAPSULE PO SCH ×2 (08:57→21:00)
[2019-02-24] MEDS: PRIMIDONE 50MG TABLET PO SCH ×2 (08:57→21:00)
[2019-02-24] MEDS: FAMOTIDINE 20MG TABLET PO SCH (08:58)
[2019-02-24] MEDS: MYCOPHENOLATE MOFETIL 250MG CAPSULE PO SCH ×2 (08:58→17:29)
[2019-02-24] MEDS: TICAGRELOR 90 MG TABLET PO SCH ×2 (08:58→17:29)
[2019-02-24] MEDS: ASPIRIN 81MG TABLET PO SCH (08:59)
[2019-02-24] MEDS ORDERED: ASPIRIN 325MG TABLET PO SCH (09:00)
[2019-02-24] MEDS: HYDROCODONE/ACETAMINOPHEN 5/325MG TABLET PO PRN ×2 (12:26→23:15)
[2019-02-24 16:43] LABS: PLATELET ESTIMATE NORMAL
[2019-02-25] VITALS (12 sets, daily range): BP systolic 110–144; BP diastolic 70–94
[2019-02-25] MEDS ORDERED: MORPHINE SULFATE 2 MG/ML CPJ (NOT FOR IM USE) IV NR (00:15)
[2019-02-25 01:03] LABS: CREATINE KINASE MB FRACTION 5.9 ng/mL (0.5-3.6)
[2019-02-25] MEDS: SODIUM CHLORIDE 0.9% INJ 3ML FLUSH IVF SCH ×3 (05:16→23:10)
[2019-02-25 06:58] LABS: HEMATOCRIT. 32.8 % (42.0-52.0); HEMOGLOBIN. 10.7 g/dL (14.0-18.0); MEAN CORPUSCULAR HEMOGLOBIN 29.4 pg (28.0-32.0); MEAN CORPUSCULAR VOLUME 90.5 fL (80.0-94.0); MEAN PLATELET VOLUME 8.9 fl (7.4-10.4); PLATELET 142 x1000/uL (130-400); RED BLOOD CELL COUNT 3.63 mill/uL (4.7-6.1); RED CELL DISTRIBUTION WIDTH 16.7 % (11.6-14.6)
[2019-02-25 07:32] LABS: CREATINE KINASE MB FRACTION 4.1 ng/mL (0.5-3.6)
[2019-02-25] MEDS: PREDNISONE 5MG TABLET PO SCH (09:31)
[2019-02-25] MEDS: MYCOPHENOLATE MOFETIL 250MG CAPSULE PO SCH ×2 (09:32→17:42)
[2019-02-25] MEDS: CARVEDILOL 6.25 MG TABLET PO SCH ×2 (09:32→23:09)
[2019-02-25] MEDS: PRIMIDONE 50MG TABLET PO SCH ×2 (09:32→23:10)
[2019-02-25] MEDS: TICAGRELOR 90 MG TABLET PO SCH ×2 (09:32→17:42)
[2019-02-25] MEDS: FAMOTIDINE 20MG TABLET PO SCH (09:32)
[2019-02-25] MEDS: TACROLIMUS 5MG CAPSULE PO SCH ×2 (09:32→23:09)
[2019-02-25] MEDS: ASPIRIN 81MG TABLET PO SCH (09:32)
[2019-02-25] MEDS: ALLOPURINOL 100 MG TABLET PO SCH (09:32)
[2019-02-25] MEDS: LACTULOSE 20G/30ML UDC PO SCH ×5 (10:10→21:00)
[2019-02-25] MEDS: LIDOCAINE 5% PATCH TOP SCH (14:08)
[2019-02-25] MEDS: DOCUSATE SODIUM 100MG CAPSULE PO SCH (17:42)
[2019-02-25] MEDS ORDERED: POLYETHYLENE GLYCOL 3350 (17GM) 1 DOSE PACK PO SCH (21:00)
[2019-02-26] VITALS (9 sets, daily range): BP systolic 104–117; BP diastolic 62–78
[2019-02-26] MEDS: SODIUM CHLORIDE 0.9% INJ 3ML FLUSH IVF SCH ×2 (06:10→14:24)
[2019-02-26 06:46] LABS: HEMATOCRIT. 34.2 % (42.0-52.0); HEMOGLOBIN. 11.1 g/dL (14.0-18.0); MEAN CORPUSCULAR HEMOGLOBIN 29.3 pg (28.0-32.0); MEAN CORPUSCULAR VOLUME 90.7 fL (80.0-94.0); MEAN PLATELET VOLUME 9.3 fl (7.4-10.4); PLATELET 136 x1000/uL (130-400); RED BLOOD CELL COUNT 3.77 mill/uL (4.7-6.1); RED CELL DISTRIBUTION WIDTH 16.7 % (11.6-14.6)
[2019-02-26] MEDS: CARVEDILOL 6.25 MG TABLET PO SCH (08:50)
[2019-02-26] MEDS: TACROLIMUS 5MG CAPSULE PO SCH (08:50)
[2019-02-26] MEDS: FAMOTIDINE 20MG TABLET PO SCH (08:50)
[2019-02-26] MEDS: MYCOPHENOLATE MOFETIL 250MG CAPSULE PO SCH (08:50)
[2019-02-26] MEDS: ALLOPURINOL 100 MG TABLET PO SCH (08:51)
[2019-02-26] MEDS: DOCUSATE SODIUM 100MG CAPSULE PO SCH (08:51)
[2019-02-26] MEDS: TICAGRELOR 90 MG TABLET PO SCH (08:51)
[2019-02-26] MEDS: ASPIRIN 81MG TABLET PO SCH (08:51)
[2019-02-26] MEDS: PRIMIDONE 50MG TABLET PO SCH (08:51)
[2019-02-26] MEDS: LACTULOSE 20G/30ML UDC PO SCH (08:51)
[2019-02-26] MEDS: LIDOCAINE 5% PATCH TOP SCH (08:55)
[2019-02-26 09:32] LABS: PLATELET ESTIMATE NORMAL
[2019-02-26 10:11] LABS: PLATELET ESTIMATE NORMAL
== END 2019-02-26 16:13 | DRG 246 ==
LOC: ER 15:45 → 7WST 18:56 → EDBEDREQ 19:06 → ENRESERV 19:38 → 3WST 02-23 10:20
PROVIDERS: ADMIT Internal Medicine; ATTEND Internal Medicine
PROC: 5A1D70Z Performance of Urinary Filtration, Intermittent, Less than 6 Hours Per Day (ICD-10-PCS; 2019-02-22)
PROC: 4A023N7 Measurement of Cardiac Sampling and Pressure, Left Heart, Percutaneous Approach (ICD-10-PCS; principal; 2019-02-23)
PROC: 027034Z Dilation of Coronary Artery, One Artery with Drug-eluting Intraluminal Device, Percutaneous Approach (ICD-10-PCS; 2019-02-23)
PROC: B211YZZ Fluoroscopy of Multiple Coronary Arteries using Other Contrast (ICD-10-PCS; 2019-02-23)
PROC: B215YZZ Fluoroscopy of Left Heart using Other Contrast (ICD-10-PCS; 2019-02-23)
PROC: B240ZZ3 Ultrasonography of Single Coronary Artery, Intravascular (ICD-10-PCS; 2019-02-23)
PROC: 5A1D70Z Performance of Urinary Filtration, Intermittent, Less than 6 Hours Per Day (ICD-10-PCS; 2019-02-25)
DX: I21.4 Non-ST elevation (NSTEMI) myocardial infarction (principal); N18.6 End stage renal disease; I50.23 Acute on chronic systolic (congestive) heart failure; B19.10 Unspecified viral hepatitis B without hepatic coma; I13.2 Hypertensive heart and chronic kidney disease with heart failure and with stage 5 chronic kidney disease, or end stage renal disease; I42.9 Cardiomyopathy, unspecified; I25.811 Atherosclerosis of native coronary artery of transplanted heart without angina pectoris; Z94.1 Heart transplant status; E11.22 Type 2 diabetes mellitus with diabetic chronic kidney disease; J44.9 Chronic obstructive pulmonary disease, unspecified; D64.9 Anemia, unspecified; G89.4 Chronic pain syndrome; I95.1 Orthostatic hypotension; K59.09 Other constipation; M10.9 Gout, unspecified; M48.061 Spinal stenosis, lumbar region without neurogenic claudication; G90.8 Other disorders of autonomic nervous system; G25.3 Myoclonus; R26.9 Unspecified abnormalities of gait and mobility; E83.42 Hypomagnesemia; Z82.49 Family history of ischemic heart disease and other diseases of the circulatory system; I25.2 Old myocardial infarction; Z88.0 Allergy status to penicillin; Z85.46 Personal history of malignant neoplasm of prostate; Z92.3 Personal history of irradiation; Z95.1 Presence of aortocoronary bypass graft; Z99.2 Dependence on renal dialysis; Z86.19 Personal history of other infectious and parasitic diseases; Z95.5 Presence of coronary angioplasty implant and graft; Z79.899 Other long term (current) drug therapy
CPT/HCPCS: 36415; 71045; 72110; 80048; 80076; 82553; 83605; 83735; 83880; 84484; 85347; 92928; 92978; 93005; 93458; 93970; 96374; 97162; 97167; 99285; C1725; C1753; C1760; C1769; C1874; C1887; C1893; J1644; J1885; J2250; J2270; J3010; J3490; J7507; J7512; J7517; Q9967; J8499

== ENCOUNTER 2019-02-26 16:25 | Inpatient (IN) | payer MEDICARE, OTHER ==
[~2019-02-26] VITALS: Ht 177.8 cm; Wt 75.3 kg
[~2019-02-26 16:25] MED LIST changes: -ALLO100T MT; +AMLO10TA4 PO; -AMLO2.5T45 PO; +ASCO125T PO; -ASPI-518 PO; +ASPI-986 PO; -BACL-141 PO; +BACL20TA PO; +CALC-1042 PO; +CHOL400C8 PO; -CYAN10009 PO; +HYDR-4009 PO; -HYDR-519 PO; +MAGN400C PO; -MAGOX4 PO; -MULT-1146 PO; +MULT-1234 PO; +OMEP10CA5 PO; -OMEP20TA2 PO; +PRAV40TA58 PO; +PRED5TAB PO; -PRED5TAB48 PO; +PRIM50TA31 PO; -TACR5CAP13 PO; +TAMS-11 PO; +VITA400C19 PO
[2019-02-26 17:10] VITALS: BP 128/68
[2019-02-26] MEDS ORDERED: GUAIFENESIN 200MG/10ML SUGAR FREE UDC PO PRN (17:45)
[2019-02-26] MEDS ORDERED: TEMAZEPAM 15MG CAPSULE PO PRN (17:45)
[2019-02-26] MEDS ORDERED: CLONIDINE 0.1MG TABLET PO PRN (17:45)
[2019-02-26] MEDS ORDERED: DIPHENHYDRAMINE 25MG CAPSULE PO PRN (17:45)
[2019-02-26] MEDS ORDERED: ACETAMINOPHEN 325MG TABLET PO PRN ×2 (17:45)
[2019-02-26] MEDS ORDERED: MAGNESIUM HYDROXIDE 400MG/5ML 30ML UDC PO PRN (17:45)
[2019-02-26] MEDS: MYCOPHENOLATE MOFETIL 250MG CAPSULE PO SCH (18:55)
[2019-02-26 20:00] VITALS: BP 102/63
[2019-02-26] MEDS: TICAGRELOR 90 MG TABLET PO SCH (20:46)
[2019-02-26] MEDS: CARVEDILOL 6.25 MG TABLET PO SCH (20:47)
[2019-02-26] MEDS: TACROLIMUS 1MG CAPSULE PO SCH (20:47)
[2019-02-26] MEDS ORDERED: PRIMIDONE 50MG TABLET PO SCH (21:00)
[2019-02-27] MEDS ORDERED: PRIMIDONE 50MG TABLET PO NR (00:30)
[2019-02-27 06:34] LABS: HEMATOCRIT 34.9 % (42.0-52.0); HEMOGLOBIN 11.3 g/dL (14.0-18.0); MEAN CORPUSCULAR HEMOGLOBIN 29.5 pg (28.0-32.0); MEAN CORPUSCULAR VOLUME 90.8 fL (80.0-94.0); PLATELET 146 x1000/uL (130-400); RED BLOOD CELL COUNT 3.84 mill/uL (4.7-6.1); RED CELL DISTRIBUTION WIDTH 16.2 % (11.6-14.6)
[2019-02-27 06:40] LABS: CHLORIDE 95 mEq/L (98-107)
[2019-02-27 08:00] VITALS: BP 121/70
[2019-02-27] MEDS: FAMOTIDINE 20MG TABLET PO SCH (08:51)
[2019-02-27] MEDS: TACROLIMUS 1MG CAPSULE PO SCH ×2 (08:53→20:14)
[2019-02-27] MEDS: TICAGRELOR 90 MG TABLET PO SCH ×2 (08:53→16:43)
[2019-02-27] MEDS: MYCOPHENOLATE MOFETIL 250MG CAPSULE PO SCH ×2 (08:53→16:43)
[2019-02-27] MEDS: ASPIRIN 81MG TABLET PO SCH (08:54)
[2019-02-27] MEDS: ALLOPURINOL 100 MG TABLET PO SCH (08:54)
[2019-02-27] MEDS: PRIMIDONE 50MG TABLET PO SCH ×2 (08:54→20:14)
[2019-02-27] MEDS: CARVEDILOL 6.25 MG TABLET PO SCH ×2 (08:55→20:14)
[2019-02-27] MEDS: LIDOCAINE 5% PATCH TOP SCH (08:55)
[2019-02-27] MEDS: HYDROCODONE/ACETAMINOPHEN 5/325MG TABLET PO PRN (08:55)
[2019-02-27] MEDS: LACTULOSE 20G/30ML UDC PO SCH ×2 (14:10→21:23)
[2019-02-27 20:00] VITALS: BP 120/57
[2019-02-28] MEDS: LACTULOSE 20G/30ML UDC PO SCH ×3 (06:00→21:49)
[2019-02-28 07:09] LABS: HEMOGLOBIN. 11.4 g/dL (14.0-18.0); MEAN CORPUSCULAR HEMOGLOBIN 29.3 pg (28.0-32.0); MEAN CORPUSCULAR VOLUME 89.7 fL (80.0-94.0); MEAN PLATELET VOLUME 9.8 fl (7.4-10.4); PLATELET 146 x1000/uL (130-400); RED CELL DISTRIBUTION WIDTH 16.7 % (11.6-14.6)
[2019-02-28 08:13] VITALS: BP 116/75
[2019-02-28] MEDS: LIDOCAINE 5% PATCH TOP SCH (08:54)
[2019-02-28] MEDS: TACROLIMUS 1MG CAPSULE PO SCH (08:55)
[2019-02-28] MEDS: CARVEDILOL 6.25 MG TABLET PO SCH ×2 (08:55→21:46)
[2019-02-28] MEDS: PRIMIDONE 50MG TABLET PO SCH ×2 (08:55→21:46)
[2019-02-28] MEDS: FAMOTIDINE 20MG TABLET PO SCH (08:55)
[2019-02-28] MEDS: PREDNISONE 5MG TABLET PO SCH (08:55)
[2019-02-28] MEDS: TICAGRELOR 90 MG TABLET PO SCH ×2 (08:55→17:00)
[2019-02-28] MEDS: MYCOPHENOLATE MOFETIL 250MG CAPSULE PO SCH ×2 (08:56→17:00)
[2019-02-28] MEDS: ASPIRIN 81MG TABLET PO SCH (08:56)
[2019-02-28] MEDS: ALLOPURINOL 100 MG TABLET PO SCH (08:56)
[2019-02-28 10:07] LABS: PLATELET ESTIMATE NORMAL
[2019-02-28] MEDS ORDERED: BISACODYL 10MG SUPP PR PRN (10:30)
[2019-02-28] MEDS ORDERED: NA PHOS,M-B/NA PHOS,DI-BA ENEMA 118ML PR NR (12:30)
[2019-02-28] MEDS ORDERED: BISACODYL 5MG TABLET PO PRN (12:30)
[2019-02-28] MEDS: DOCUSATE SODIUM 100MG CAPSULE PO SCH (17:00)
[2019-02-28 20:00] VITALS: BP 110/67
[2019-02-28] MEDS: POLYETHYLENE GLYCOL 3350 (17GM) 1 DOSE PACK PO SCH (21:00)
[2019-02-28] MEDS: TACROLIMUS 5MG CAPSULE PO SCH (21:47)
[2019-03-01] MEDS: LACTULOSE 20G/30ML UDC PO SCH ×2 (06:00→14:00)
[2019-03-01 08:06] LABS: VITAMIN B12 SERUM >2000 pg/mL pg/mL (211-911)
[2019-03-01 08:08] VITALS: BP 124/70
[2019-03-01 08:08] LABS: FERRITIN 1163 ng/mL (22-322); PROSTRATE SPECIFIC AG TOTAL 0.09 ng/mL (0.0-4.0)
[2019-03-01] MEDS: LIDOCAINE 5% PATCH TOP SCH (08:23)
[2019-03-01] MEDS: CARVEDILOL 6.25 MG TABLET PO SCH ×2 (08:23→21:42)
[2019-03-01] MEDS: MYCOPHENOLATE MOFETIL 250MG CAPSULE PO SCH ×2 (08:23→16:37)
[2019-03-01] MEDS: DOCUSATE SODIUM 100MG CAPSULE PO SCH ×2 (08:24→16:37)
[2019-03-01] MEDS: PRIMIDONE 50MG TABLET PO SCH ×2 (08:24→21:42)
[2019-03-01] MEDS: ASPIRIN 81MG TABLET PO SCH (08:24)
[2019-03-01] MEDS: ALLOPURINOL 100 MG TABLET PO SCH (08:24)
[2019-03-01] MEDS: TICAGRELOR 90 MG TABLET PO SCH ×2 (08:24→16:37)
[2019-03-01] MEDS: FAMOTIDINE 20MG TABLET PO SCH (08:24)
[2019-03-01] MEDS: TACROLIMUS 5MG CAPSULE PO SCH ×2 (08:24→21:42)
[2019-03-01 09:54] LABS: PHOSPHORUS 5.1 mg/dL (2.5-4.9)
[2019-03-01] MEDS: ONDANSETRON 4MG ODT PO PRN (11:01)
[2019-03-01 20:00] VITALS: BP 105/59
[2019-03-01] MEDS: POLYETHYLENE GLYCOL 3350 (17GM) 1 DOSE PACK PO SCH (21:00)
[2019-03-02 07:37] LABS: HEMATOCRIT. 33.1 % (42.0-52.0); HEMOGLOBIN. 10.8 g/dL (14.0-18.0); MEAN CORPUSCULAR HEMOGLOBIN 29.4 pg (28.0-32.0); MEAN CORPUSCULAR VOLUME 90.3 fL (80.0-94.0); MEAN PLATELET VOLUME 9.8 fl (7.4-10.4); PLATELET 153 x1000/uL (130-400); RED BLOOD CELL COUNT 3.67 mill/uL (4.7-6.1); RED CELL DISTRIBUTION WIDTH 16.6 % (11.6-14.6)
[2019-03-02 07:51] VITALS: BP 121/63
[2019-03-02] MEDS: LIDOCAINE 5% PATCH TOP SCH (09:00)
[2019-03-02] MEDS: PREDNISONE 5MG TABLET PO SCH (09:39)
[2019-03-02] MEDS: MYCOPHENOLATE MOFETIL 250MG CAPSULE PO SCH ×2 (09:39→17:00)
[2019-03-02] MEDS: TICAGRELOR 90 MG TABLET PO SCH ×2 (09:39→17:00)
[2019-03-02] MEDS: DOCUSATE SODIUM 100MG CAPSULE PO SCH ×2 (09:39→17:00)
[2019-03-02] MEDS: TACROLIMUS 5MG CAPSULE PO SCH ×2 (09:39→21:03)
[2019-03-02] MEDS: CARVEDILOL 6.25 MG TABLET PO SCH ×2 (09:39→21:03)
[2019-03-02] MEDS: FAMOTIDINE 20MG TABLET PO SCH (09:39)
[2019-03-02] MEDS: PRIMIDONE 50MG TABLET PO SCH ×2 (09:39→21:03)
[2019-03-02] MEDS: ASPIRIN 81MG TABLET PO SCH (09:40)
[2019-03-02] MEDS: ALLOPURINOL 100 MG TABLET PO SCH (09:40)
[2019-03-02] MEDS: ONDANSETRON 4MG ODT PO PRN ×2 (10:57→14:38)
[2019-03-02 14:26] LABS: PLATELET ESTIMATE NORMAL
[2019-03-02 20:00] VITALS: BP 103/67
[2019-03-03 07:59] VITALS: BP 120/67
[2019-03-03] MEDS: ASPIRIN 81MG TABLET PO SCH (08:55)
[2019-03-03] MEDS: TACROLIMUS 5MG CAPSULE PO SCH (08:55)
[2019-03-03] MEDS: LIDOCAINE 5% PATCH TOP SCH (08:55)
[2019-03-03] MEDS: ALLOPURINOL 100 MG TABLET PO SCH (08:55)
[2019-03-03] MEDS: TICAGRELOR 90 MG TABLET PO SCH (08:56)
[2019-03-03] MEDS: MYCOPHENOLATE MOFETIL 250MG CAPSULE PO SCH (08:56)
[2019-03-03] MEDS: CARVEDILOL 6.25 MG TABLET PO SCH (08:56)
[2019-03-03] MEDS: FAMOTIDINE 20MG TABLET PO SCH (08:57)
[2019-03-03] MEDS: PRIMIDONE 50MG TABLET PO SCH (08:57)
[2019-03-03] MEDS: DOCUSATE SODIUM 100MG CAPSULE PO SCH (09:00)
[2019-03-03] MEDS: ONDANSETRON 4MG ODT PO PRN (12:16)
[2019-03-03] MEDS: HYDROCODONE/ACETAMINOPHEN 5/325MG TABLET PO PRN (12:18)
[2019-03-03 16:24] VITALS: BP 128/51
[2019-03-04 19:15] LABS: 25-HYDROXY VITAMIN D3 21 ng/mL (.)
== END 2019-03-03 16:40 | disposition home health service (06) | DRG 280 ==
PROVIDERS: ADMIT Physical Medicine & Rehabilitation Spinal Cord Injury Medicine; ATTEND Internal Medicine
PROC: 5A1D70Z Performance of Urinary Filtration, Intermittent, Less than 6 Hours Per Day (ICD-10-PCS; principal; 2019-02-28)
PROC: 5A1D70Z Performance of Urinary Filtration, Intermittent, Less than 6 Hours Per Day (ICD-10-PCS; 2019-03-01)
DX: I21.4 Non-ST elevation (NSTEMI) myocardial infarction (principal); N18.6 End stage renal disease; I50.22 Chronic systolic (congestive) heart failure; I13.2 Hypertensive heart and chronic kidney disease with heart failure and with stage 5 chronic kidney disease, or end stage renal disease; I25.811 Atherosclerosis of native coronary artery of transplanted heart without angina pectoris; I42.9 Cardiomyopathy, unspecified; G89.4 Chronic pain syndrome; R53.81 Other malaise; M54.5 Low back pain; M48.061 Spinal stenosis, lumbar region without neurogenic claudication; J44.9 Chronic obstructive pulmonary disease, unspecified; D64.9 Anemia, unspecified; I95.1 Orthostatic hypotension; K59.09 Other constipation; Z95.5 Presence of coronary angioplasty implant and graft; I25.2 Old myocardial infarction; Z92.3 Personal history of irradiation; Z85.46 Personal history of malignant neoplasm of prostate; Z79.899 Other long term (current) drug therapy; Z99.2 Dependence on renal dialysis; Z86.19 Personal history of other infectious and parasitic diseases
CPT/HCPCS: 36415; 80048; 82306; 82607; 82728; 82746; 83540; 83550; 83735; 84100; 84134; 84153; 84443; 85027; 93005; 93970; 97110; 97116; 97162; 97166; 97530; 97535; J7507; J7512; J7517; Q0162; G0103; J8499

== ENCOUNTER 2019-06-20 12:13 | Inpatient (IN) | payer MEDICARE, OTHER ==
[~2019-06-20] VITALS: Ht 175.3 cm; Wt 87.5 kg
[2019-06-20 13:02] LABS: BASOPHILS % 0.5 % (0.0-2.0); EOSINOPHILS % 5.9 % (0.0-5.0); HEMATOCRIT. 30.3 % (42.0-52.0); HEMOGLOBIN. 9.7 g/dL (14.0-18.0); LYMPHOCYTES % 27.6 % (20.0-50.0); MEAN CORPUSCULAR HEMOGLOBIN 30.6 pg (28.0-32.0); MEAN PLATELET VOLUME 8.8 fl (7.4-10.4); MONOCYTES % 11.2 % (2.0-8.0); NEUTROPHILS % 54.8 % (40.0-76.0); PLATELET 236 x1000/uL (130-400); RED BLOOD CELL COUNT 3.16 mill/uL (4.7-6.1); RED CELL DISTRIBUTION WIDTH 16.6 % (11.6-14.6)
[2019-06-20 13:06] LABS: INR 0.9; PROTHROMBIN TIME 9.7 sec (9.6-11.0)
[2019-06-20 13:31] LABS: CHLORIDE 102 mEq/L (98-107)
[2019-06-20] MEDS ORDERED: LEVOFLOXACIN 750MG PREMIX 150 ML IV ONE (15:30)
[2019-06-20] MEDS ORDERED: ACETAMINOPHEN 325MG TABLET PO PRN (15:45)
[2019-06-20] MEDS ORDERED: TRAMADOL 50MG TABLET PO PRN (15:45)
[2019-06-20] MEDS ORDERED: IPRATROPIUM/ALBUTEROL 0.5-3(2.5)MG/3ML NEB NEB PRN (15:45)
[2019-06-20] MEDS ORDERED: MAGNESIUM/ALUMINUM HYDROXIDE/SIMETHICONE 30ML UDC PO PRN (15:45)
[2019-06-20] MEDS ORDERED: DIPHENHYDRAMINE 50MG/ML VIAL IV PRN (15:45)
[2019-06-20] MEDS ORDERED: PIPERACILLIN/TAZ 3.375G PREMIX 50 ML IV SCH (15:45)
[2019-06-20] MEDS ORDERED: NITROGLYCERIN 0.4MG TABLET SL SL PRN (15:45)
[2019-06-20] MEDS ORDERED: CLONIDINE 0.1MG TABLET PO PRN (15:45)
[2019-06-20] MEDS ORDERED: ONDANSETRON HCL 4MG/2ML INJ IV PRN (15:45)
[2019-06-20] MEDS ORDERED: GUAIFENESIN 200MG/10ML SUGAR FREE UDC PO PRN (15:45)
[2019-06-20] MEDS ORDERED: ENOXAPARIN 40MG/0.4ML SYR SUBCUT SCH (15:45)
[2019-06-20 17:10] VITALS: BP 141/66
[2019-06-20] MEDS ORDERED: OMEP20CA5 PO (17:39)
[2019-06-20] MEDS ORDERED: ASPI-1393 PO (17:39)
[2019-06-20] MEDS ORDERED: ALLO100T PO (17:39)
[2019-06-20] MEDS ORDERED: COLC0.6C3 PO (17:39)
[2019-06-20] MEDS ORDERED: CLOP75TA15 PO (17:39)
[2019-06-20] MEDS ORDERED: GABA-531 PO (17:39)
[2019-06-20 17:44] VITALS: BP 141/66
[2019-06-20] MEDS: TACROLIMUS 1MG CAPSULE PO SCH (18:25)
[2019-06-20] MEDS: DOCUSATE SODIUM 100MG CAPSULE PO PRN (18:25)
[2019-06-20] MEDS: PREDNISONE 5MG TABLET PO SCH (18:25)
[2019-06-20] MEDS: SEVELAMER CARBONATE 800 MG TABLET PO SCH (18:25)
[2019-06-20] MEDS: CARVEDILOL 3.125 MG TABLET PO SCH (18:25)
[2019-06-20] MEDS: ENOXAPARIN 30MG/0.3ML SYR SUBCUT SCH (18:26)
[2019-06-20 20:00] VITALS: BP 133/64
[2019-06-20] MEDS ORDERED: VANCOMYCIN 1500MG in DEXTROSE 5% WATER 250ML IV NR (20:00)
[2019-06-20] MEDS: MYCOPHENOLATE MOFETIL 250MG CAPSULE PO SCH (21:00)
[2019-06-20] MEDS: FAMOTIDINE 20MG TABLET PO SCH (21:00)
[2019-06-20] MEDS: ASCORBIC ACID 500 MG TABLET PO SCH (21:00)
[2019-06-20] MEDS ORDERED: ZOLPIDEM TARTRATE 5MG TABLET PO PRN (21:00)
[2019-06-21] VITALS: BP 137/69
[2019-06-21 00:28] LABS: CREATINE KINASE 32 IU/L (39-308)
[2019-06-21 00:30] LABS: CREATINE KINASE MB FRACTION < 1.0 ng/mL (0.5-3.6)
[2019-06-21 04:00] VITALS: BP 135/73
[2019-06-21] MEDS: CARVEDILOL 3.125 MG TABLET PO SCH ×2 (06:11→18:55)
[2019-06-21] MEDS: TACROLIMUS 1MG CAPSULE PO SCH ×2 (06:11→18:55)
[2019-06-21 07:06] LABS: CREATINE KINASE 28 IU/L (39-308)
[2019-06-21 07:08] LABS: CREATINE KINASE MB FRACTION < 1.0 ng/mL (0.5-3.6)
[2019-06-21 08:00] VITALS: BP 144/66
[2019-06-21] MEDS ORDERED: ASPIRIN 325MG EC TABLET PO SCH (09:00)
[2019-06-21] MEDS: ZINC SULFATE 220 MG ( 50 ) CAPSULE PO SCH (09:09)
[2019-06-21] MEDS: SEVELAMER CARBONATE 800 MG TABLET PO SCH ×3 (09:10→18:55)
[2019-06-21] MEDS: PREDNISONE 5MG TABLET PO SCH (09:11)
[2019-06-21] MEDS: DOCUSATE SODIUM 100MG CAPSULE PO PRN ×2 (09:11→18:55)
[2019-06-21] MEDS: MYCOPHENOLATE MOFETIL 250MG CAPSULE PO SCH ×2 (09:11→22:58)
[2019-06-21] MEDS: ASCORBIC ACID 500 MG TABLET PO SCH ×2 (09:11→22:58)
[2019-06-21 12:00] VITALS: BP 138/178
[2019-06-21] MEDS ORDERED: VANCOMYCIN 1250MG in DEXTROSE 5% WATER 250ML IV NR (12:30)
[2019-06-21 16:00] VITALS: BP 137/77
[2019-06-21] MEDS: ENOXAPARIN 30MG/0.3ML SYR SUBCUT SCH (18:55)
[2019-06-21 20:00] VITALS: BP 130/70
[2019-06-21] MEDS: FAMOTIDINE 20MG TABLET PO SCH (22:58)
[2019-06-22] VITALS (7 sets, daily range): BP systolic 124–161; BP diastolic 69–85
[2019-06-22] MEDS: CARVEDILOL 3.125 MG TABLET PO SCH (06:00)
[2019-06-22] MEDS: TACROLIMUS 1MG CAPSULE PO SCH ×2 (06:59→18:17)
[2019-06-22 07:13] LABS: HEMATOCRIT. 28.4 % (42.0-52.0); HEMOGLOBIN. 9.3 g/dL (14.0-18.0); MEAN CORPUSCULAR HEMOGLOBIN 30.9 pg (28.0-32.0); MEAN CORPUSCULAR VOLUME 94.8 fL (80.0-94.0); MEAN PLATELET VOLUME 8.6 fl (7.4-10.4); PLATELET 156 x1000/uL (130-400); RED CELL DISTRIBUTION WIDTH 16.4 % (11.6-14.6)
[2019-06-22 07:18] LABS: CHLORIDE 99 mEq/L (98-107)
[2019-06-22] MEDS: SEVELAMER CARBONATE 800 MG TABLET PO SCH ×3 (11:04→18:17)
[2019-06-22] MEDS: ZINC SULFATE 220 MG ( 50 ) CAPSULE PO SCH (11:05)
[2019-06-22] MEDS: ASCORBIC ACID 500 MG TABLET PO SCH ×2 (11:05→21:21)
[2019-06-22] MEDS: DOCUSATE SODIUM 100MG CAPSULE PO PRN ×2 (11:05→18:17)
[2019-06-22] MEDS: CLOPIDOGREL 75MG TABLET PO SCH (11:05)
[2019-06-22] MEDS: PREDNISONE 5MG TABLET PO SCH (11:05)
[2019-06-22] MEDS: MYCOPHENOLATE MOFETIL 250MG CAPSULE PO SCH ×2 (11:06→21:21)
[2019-06-22] MEDS: ASPIRIN 81MG EC TABLET PO SCH (11:06)
[2019-06-22 15:36] LABS: PLATELET ESTIMATE NORMAL
[2019-06-22] MEDS ORDERED: VANCOMYCIN 1 G PREMIX 200 ML IV NR (16:00)
[2019-06-22] MEDS: CARVEDILOL 6.25 MG TABLET PO SCH (18:17)
[2019-06-22] MEDS: ENOXAPARIN 30MG/0.3ML SYR SUBCUT SCH (18:18)
[2019-06-22] MEDS: FAMOTIDINE 20MG TABLET PO SCH (21:21)
[2019-06-23 04:00] VITALS: BP 118/76
[2019-06-23] MEDS: CARVEDILOL 6.25 MG TABLET PO SCH ×3 (06:00→18:01)
[2019-06-23] MEDS: TACROLIMUS 1MG CAPSULE PO SCH ×2 (07:02→18:01)
[2019-06-23 08:00] VITALS: BP 131/75
[2019-06-23] MEDS: SEVELAMER CARBONATE 800 MG TABLET PO SCH ×3 (08:52→18:01)
[2019-06-23] MEDS: ZINC SULFATE 220 MG ( 50 ) CAPSULE PO SCH (08:52)
[2019-06-23] MEDS: CLOPIDOGREL 75MG TABLET PO SCH (08:53)
[2019-06-23] MEDS: ASPIRIN 81MG EC TABLET PO SCH (08:53)
[2019-06-23] MEDS: ASCORBIC ACID 500 MG TABLET PO SCH ×2 (08:53→21:26)
[2019-06-23] MEDS: PREDNISONE 5MG TABLET PO SCH (08:53)
[2019-06-23] MEDS: MYCOPHENOLATE MOFETIL 250MG CAPSULE PO SCH ×2 (08:53→21:26)
[2019-06-23 10:27] LABS: HEMATOCRIT. 30.9 % (42.0-52.0); HEMOGLOBIN. 10.5 g/dL (14.0-18.0); MEAN CORPUSCULAR HEMOGLOBIN 32.2 pg (28.0-32.0); MEAN CORPUSCULAR VOLUME 94.6 fL (80.0-94.0); MEAN PLATELET VOLUME 8.7 fl (7.4-10.4); PLATELET 146 x1000/uL (130-400); RED BLOOD CELL COUNT 3.27 mill/uL (4.7-6.1); RED CELL DISTRIBUTION WIDTH 16.2 % (11.6-14.6)
[2019-06-23] MEDS ORDERED: HYDROCODONE/ACETAMINOPHEN 5/325MG TABLET PO SCH (10:30)
[2019-06-23 11:08] LABS: CHLORIDE 98 mEq/L (98-107)
[2019-06-23 12:00] VITALS: BP 125/68
[2019-06-23 12:19] LABS: PLATELET ESTIMATE NORMAL
[2019-06-23 17:26] VITALS: BP 114/63
[2019-06-23] MEDS: ENOXAPARIN 30MG/0.3ML SYR SUBCUT SCH (18:02)
[2019-06-23 20:00] VITALS: BP 120/58
[2019-06-23] MEDS: FAMOTIDINE 20MG TABLET PO SCH (21:25)
[2019-06-24] VITALS: BP 113/55
[2019-06-24 04:00] VITALS: BP 123/62
[2019-06-24] MEDS: CARVEDILOL 6.25 MG TABLET PO SCH ×2 (06:00→18:00)
[2019-06-24] MEDS: TACROLIMUS 1MG CAPSULE PO SCH ×2 (06:14→18:25)
[2019-06-24 07:54] LABS: HEMATOCRIT. 30.1 % (42.0-52.0); HEMOGLOBIN. 9.9 g/dL (14.0-18.0); MEAN CORPUSCULAR HEMOGLOBIN 31.1 pg (28.0-32.0); MEAN CORPUSCULAR VOLUME 94.6 fL (80.0-94.0); MEAN PLATELET VOLUME 9.2 fl (7.4-10.4); PLATELET 137 x1000/uL (130-400); RED BLOOD CELL COUNT 3.18 mill/uL (4.7-6.1); RED CELL DISTRIBUTION WIDTH 15.8 % (11.6-14.6)
[2019-06-24 08:00] VITALS: BP 127/63
[2019-06-24] MEDS: SEVELAMER CARBONATE 800 MG TABLET PO SCH ×3 (08:10→18:25)
[2019-06-24 12:00] VITALS: BP 128/72
[2019-06-24 12:14] LABS: PLATELET ESTIMATE NORMAL
[2019-06-24] MEDS: ZINC SULFATE 220 MG ( 50 ) CAPSULE PO SCH (15:46)
[2019-06-24] MEDS: CLOPIDOGREL 75MG TABLET PO SCH (15:46)
[2019-06-24] MEDS: ASCORBIC ACID 500 MG TABLET PO SCH (15:46)
[2019-06-24] MEDS: PREDNISONE 5MG TABLET PO SCH (15:46)
[2019-06-24] MEDS: ASPIRIN 81MG EC TABLET PO SCH (15:46)
[2019-06-24] MEDS: MYCOPHENOLATE MOFETIL 250MG CAPSULE PO SCH (15:46)
[2019-06-24 16:00] VITALS: BP 93/51
[2019-06-24 16:52] VITALS: BP 93/57
[2019-06-24] MEDS: ENOXAPARIN 30MG/0.3ML SYR SUBCUT SCH (18:00)
== END 2019-06-24 18:48 | DRG 91 ==
LOC: ER 12:13 → 7WST 15:10 → EDBEDREQ 15:15 → SUPCPDRO 15:17 → ENRESERV 15:22
PROVIDERS: ADMIT Internal Medicine; ATTEND Internal Medicine
PROC: 5A1D70Z Performance of Urinary Filtration, Intermittent, Less than 6 Hours Per Day (ICD-10-PCS; principal; 2019-06-20)
PROC: 5A1D70Z Performance of Urinary Filtration, Intermittent, Less than 6 Hours Per Day (ICD-10-PCS; 2019-06-21)
PROC: 5A1D70Z Performance of Urinary Filtration, Intermittent, Less than 6 Hours Per Day (ICD-10-PCS; 2019-06-23)
DX: G92 Toxic encephalopathy (principal); N18.6 End stage renal disease; I13.2 Hypertensive heart and chronic kidney disease with heart failure and with stage 5 chronic kidney disease, or end stage renal disease; B18.1 Chronic viral hepatitis B without delta-agent; I25.811 Atherosclerosis of native coronary artery of transplanted heart without angina pectoris; Z94.1 Heart transplant status; D63.8 Anemia in other chronic diseases classified elsewhere; E11.22 Type 2 diabetes mellitus with diabetic chronic kidney disease; E78.5 Hyperlipidemia, unspecified; I25.5 Ischemic cardiomyopathy; I27.20 Pulmonary hypertension, unspecified; I50.9 Heart failure, unspecified; M10.9 Gout, unspecified; G89.4 Chronic pain syndrome; J44.9 Chronic obstructive pulmonary disease, unspecified; N40.0 Benign prostatic hyperplasia without lower urinary tract symptoms; Z79.02 Long term (current) use of antithrombotics/antiplatelets; Z79.82 Long term (current) use of aspirin; Z82.3 Family history of stroke; Z82.49 Family history of ischemic heart disease and other diseases of the circulatory system; I25.2 Old myocardial infarction; Z86.73 Personal history of transient ischemic attack (TIA), and cerebral infarction without residual deficits; Z95.1 Presence of aortocoronary bypass graft; Z95.5 Presence of coronary angioplasty implant and graft; Z99.2 Dependence on renal dialysis; Z88.0 Allergy status to penicillin; Z79.899 Other long term (current) drug therapy; Z91.013 Allergy to seafood
CPT/HCPCS: 36415; 70551; 71045; 80048; 80061; 80202; 82550; 82553; 82962; 83036; 83605; 84145; 84484; 93005; 93306; 93970; 97116; 97162; 97167; 97530; 97535; 99291; J1650; J1956; J3370; J7040; J7060; J7507; J7512; J7517

== ENCOUNTER 2020-04-16 12:51 | Emergency (ER) | payer MEDICARE, OTHER ==
[~2020-04-16] VITALS: Ht 167.6 cm; Wt 75.0 kg
[~2020-04-16 12:51] MED LIST changes: +ALLO100T PO; +ASPI-1497 PO; -ASPI-986 PO; -CELL2 PO; +CLOP75TA15 PO; +COLC0.6C3 PO; -FURO40TA5 PO; +GABA-531 PO; -HYDR-4009 PO; -MAGN400C PO; -OMEP10CA5 PO; +OMEP20CA14 PO
[2020-04-16 14:56] LABS: BASOPHILS % 0.7 % (0.0-2.0); EOSINOPHILS % 1.2 % (0.0-5.0); HEMATOCRIT. 29.3 % (42.0-52.0); HEMOGLOBIN. 9.3 g/dL (14.0-18.0); LYMPHOCYTES % 17.9 % (20.0-50.0); MEAN CORPUSCULAR HEMOGLOBIN 30.5 pg (28.0-32.0); MEAN PLATELET VOLUME 7.9 fl (7.4-10.4); MONOCYTES % 4.4 % (2.0-8.0); NEUTROPHILS % 75.8 % (40.0-76.0); PLATELET 146 x1000/uL (130-400); RED BLOOD CELL COUNT 3.05 mill/uL (4.7-6.1); RED CELL DISTRIBUTION WIDTH 17.4 % (11.6-14.6)
[2020-04-16 15:01] LABS: CHLORIDE 104 mEq/L (98-107)
[2020-04-16 15:09] LABS: INR 1.1; PROTHROMBIN TIME 11.2 sec (9.6-11.0)
[2020-04-16 20:48] VITALS: BP 147/74
== END 2020-04-16 20:45 | disposition short-term general hospital (02) ==
LOC: ER 12:51 → EDBEDREQ 14:48 → EDBEDREQTM 14:48 → CANBEDREQ 17:14 → ER 20:45
DX: Z03.818 Encounter for observation for suspected exposure to other biological agents ruled out (principal); R06.02 Shortness of breath; I11.0 Hypertensive heart disease with heart failure; I50.9 Heart failure, unspecified; Z94.1 Heart transplant status; E11.9 Type 2 diabetes mellitus without complications; Z85.9 Personal history of malignant neoplasm, unspecified
CPT/HCPCS: 36415; 71045; 80053; 83605; 83880; 84484; 85025; 86850; 86900; 87426; 93005; 99285; 99291